=== PATIENT | male | born 1985 | race Caucasian/White ===

== ENCOUNTER → 2018-07-19 08:43 | Day surgery (SDC) | payer OTHER ==
--- NOTE | 2018-07-03 11:38 | HP ---
HISTORY AND PHYSICAL: ADDENDUM: CURRENT MEDICATIONS: 1. Voltaren 1%. 2. Ibuprofen 200 mg p.r.n. pain. 3. Nexium 24-hour tab 20 mg 1 by mouth every day. 4. Tretinoin 0.1% as needed for acne. 5. Ketoconazole 2% cream as needed for facial redness. ALLERGIES: DOXYCYCLINE, which has caused hives. YAMILETH SHIPLEY [id number]/[facility] #: [id number] MTDD
--- NOTE | 2018-07-03 12:28 | HP ---
PREOPERATIVE HISTORY AND PHYSICAL: DATE OF ADMISSION: 07/19/18 ATTENDING SURGEON: Dr. Hari Sheridan* (dictated by YAMILETH Mercado). CHIEF COMPLAINT: Right wrist pain. HISTORY OF PRESENT ILLNESS: Mr. Mitchell is a 33-year-old right-hand dominant male, who has been followed by Dr. Sheridan for right wrist pain related to a ganglion cyst. The patient's pain has not improved with injections, NSAIDs, bracing, or physical therapy. Therefore, surgical excision has been recommended and the patient would like to proceed with this procedure with Dr. Sheridan. PAST MEDICAL HISTORY: Gastroesophageal reflux disease and mild acne. PAST SURGICAL HISTORY: None. CURRENT MEDICATIONS: 1. Voltaren 1%. 2. Ibuprofen 200 mg p.r.n. pain. 3. Nexium 24-hour tab 20 mg 1 by mouth every day. 4. Tretinoin 0.1% as needed for acne. 5. Ketoconazole 2% cream as needed for facial redness. ALLERGIES: DOXYCYCLINE, which has caused hives. FAMILY HISTORY: No known history. 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 REVIEW OF SYSTEMS: No headache, lightheadedness, or balance problems. Cardio: He has rare palpitations with stress, his PCP described as benign. He denies harshal chest pain and no murmurs. Respiratory: No chronic cough, asthma, COPD, or shortness of breath with exertion. Gastrointestinal: Reports mild gastric reflux, controlled with medication but no nausea, vomiting, diarrhea or constipation. Genitourinary: No nighttime urination, increased urgency, frequency, urinary tract infections or kidney issues. Musculoskeletal: As per HPI. No chronic back pain or history of fracture. Skin: Mild acne but no rashes, lesions, lumps, or sores. Neurological: No seizure, stroke, epilepsy, depression, or anxiety. Endocrine: No thyroid or diabetic issues. Hematology: No easy bleeding, bruising, anemia, or clotting issues. PHYSICAL EXAMINATION GENERAL: He is a well-developed, well-nourished male, seated on exam chair, in no acute distress with appropriate affect. VITAL SIGNS: Height 71 inches, weight 170 pounds, pulse 76, blood pressure 118/ 68 with respirations of 12. HEENT: Normocephalic, atraumatic. Hearing and vision are grossly intact with extraocular movements intact. NECK: The trachea is midline and symmetrical. LUNGS: Clear to auscultation. No wheezes, rales, or rhonchi appreciated. HEART: Regular rate and rhythm with a normal S1, S2. No murmurs, rubs, or gallops. ABDOMEN: Soft and nontender with bowel sounds present. GENITOURINARY: Deferred. MUSCULOSKELETAL: The right wrist reveals no obvious edema or bruising. Passive range of motion is 60 degrees of extension and flexion compared to the contralateral left wrist flexion and extension of 80 degrees. The right wrist has pain at the terminal ends of range of motion with tenderness to palpation of the scapholunate ligament with a mild soft palpable mass. No radial snuffbox tenderness. Positive dorsal talus Myers test. He is neurovascularly intact. A 2+ radial pulse and brisk capillary refill. IMAGING: X-rays of the right wrist from 12/06/2017, 3 views, show no fracture, and no degenerative changes. MRI of the right wrist without contrast from December 17, 2017 shows a clear ganglion cyst approximately 5-mm in diameter present just dorsal to the scapholunate ligament. No clear scapholunate ligament tear visible. No clear dorsal extrinsic ligament tear. I showed the patient the MRI images that included this clear cyst present in the location of the patient's continued pain. IMPRESSION: Right wrist dorsal ganglion cyst. PLAN: Right wrist excision of dorsal ganglion cyst with Dr. Sheridan on . Dr. Sheridan discussed the possible risk and benefits of the procedure and answered the patient's questions. The patient would like to proceed. He will follow up postoperatively as discussed upon discharge. YAMILETH MERCADO [id number]/[facility] #: [id number]/[facility] #: [id number] PETER
[~2018-07-19 08:43] MED LIST: Acetaminophen TAB* 325 MG PO PRN; Buffered Lidocaine 1% SYRIN* 1 ML/SYRINGE INTRADERM ONE; Bupivacaine 0.5%* 50 ML VIAL ONE; HYDROmorphone INJ1* 1 MG/ML SYRINGE IV PRN; Ketorolac INJ* 30 MG/ML 1 ML VIAL ONE; Lactated Ringers 1000 ML Bag* 1,000 ML IV SCH; Lidocaine 1% INJ* 10 MG/ML 30 ML SDV ONE; Lidocaine 2% PF * 5 ML VIAL ONE; Midazolam* 1 MG/ML 2 ML VIAL (2 MG) ONE; Naloxone* 0.4 MG/ML 1 ML VIAL IV PRN; Ondansetron ODT TAB* 4 MG PO PRN; Propofol* 10 MG/ML 20 ML BTL ONE; Propofol* 500 MG/50 ML BTL ONE; Rocuronium* 10 MG/ML VIAL ONE; Sugammadex * 500 MG/5 ML VIAL IV PUSH ONE; ceFAZolin 2 GM in NS PREMIX(*) 2 GM/100 ML BAG IVPB ONE; fentaNYL* 50 MCG/ML 2 ML VIAL (100 MCG VIAL) ONE; oxyCODONE TAB* 5 MG TAB PO PRN
[2018-07-19 16:07] VITALS: BP 119/85
--- NOTE | 2018-07-21 00:46 | OP ---
OPERATIVE REPORT: DATE OF OPERATION: 07/19/18 DATE OF : 89 SURGEON: Dr. Hari Sheridan. SUSTAINABLE COMMUNITIES DESIGNER: YAMILETH Timmons. A physician assistant plant manager was required for the length of the procedure for assistance with patient positi oning, retraction, and closure. ANESTHESIOLOGIST: Dr. Corrine Saez. ANESTHESIA: The patient started out with monitored anesthesia care consisting of general sedation an d local anesthesia. For local anesthesia, I utilized 22 cc of 1:1 ratio of Marcaine 0.5% with epinep hrine and lidocaine 1%. We then transitioned to general anesthesia. PRE-OP DIAGNOSIS: Right wrist dorsal ganglion cyst. POST-OP DIAGNOSIS: Right wrist dorsal ganglion cyst. OPERATIVE PROCEDURE: Excision of right wrist dorsal ganglion cyst. ANTIBIOTICS: 2 g Ancef IV. IV FLUIDS: See Anesthesia note. TOURNIQUET TIME: Approximately 47 minutes at 250 mmHg right upper arm. SKIN TO SKIN TIME: 46 minutes. COMPLICATIONS: None. IMPLANTS: None. SPECIMEN: A ganglion sac sent to Pathology. ESTIMATED BLOOD LOSS: Minimal. 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 He had seen orthopedic surgeons including hand surgeons in [facility] for many years with periodic cortisone injections and wrist bracing. He had also been treated with physical therapy and NSAIDs. I attempted an aspira tion in the office, but that was unsuccessful. Discussed with the patient risks and potential complications of surgery including bleeding, infection , nerve or blood vessel injury, risk of recurrence of ganglion cyst, risk of persistent pain, wrist s tiffness, tendon and nerve injury among others. The patient opted to moved forward with surgery. DESCRIPTION OF PROCEDURE: In preoperative holding, the patient signed a written surgical consent. O perative extremity was marked in preoperative holding. The patient mentioned to the anesthesiologist that a grandparent of his had a history of malignant hyperthermia. Therefore, there was a strong pr eference if possible to avoid general anesthesia. The patient was brought back to the operating room on a stretcher. The patient received some light sedation. Mini time-out was performed. I next injected 10 cc of a 1:1 ratio of lidocaine 1% and Marcaine 0.5% with epinephrine into the dorsal and radial distal forearm proximal to the area of planned incision. I did this to obtain anesthesia of branches from the lateral antebrachial cutaneous nerve, superfici al radial nerve, and ulnar nerve. It should be stated that when the patient was still in preoperative holding, I was able to palpate hi s ganglion and I used a marking pen to delineate its borders. As well, a preoperative imaging was up in the room, showed a lesion that was 5 x 6 mm, although accor ding to touch in preoperative holding it appeared that the lesion had grown since the patient's last clinic visit and since the time of the MRI that was obtained. The patient's right upper extremity was next prepped and draped. Formal surgical time-out was perfor med. Esmarch was applied and tourniquet was elevated to 250 mmHg. I tested for anesthesia about the planned skin incision. The patient's wrist was moving. He clearly was responding to that. Therefore, I added some more local anesthesia into the area about the plann ed incision site. I next made a transverse skin incision overlying the bump that had been palpated p reoperatively, transverse incision chosen for its cosmesis. I dissected down through the superficial most subcutaneous tissue and then prior to reaching any longitudinal structure such as superficial v eins or nerves, I stopped using the knife, I used scissors with careful dissection and placed retract ors radial and ulnar. The patient was still moving. The anesthesia made him deeper. I identified the extensor tendons of the fourth compartment. I released a small amount of extensor r etinaculum that allowed mobilization of these tendons. I was between the third and fourth extensor t endon compartments. Ganglion was visualized. I started to dissect closely around the ganglion cyst. The patient moved as he was actually moving his nonoperative arm as well. Decision was made to con vert the patient to general anesthesia. We waited for general anesthesia to be induced. We waited for the general anesthesia to be particula rly deep so that there was no possibility of patient movement. Identified a ganglion cyst. Dissected down further. Identified a ganglion cyst lying directly over the dorsal aspect of the scaphoid. It popped as I was dissecting around it. I sharply excised with scissors the cyst sac or part of it and sent that to Pathology. Identified the scapholunate interval , the clear source of the sac based on preoperative imaging. I fulgurated a hole in the capsule over lying this ligament with bipolar cautery, making sure to respect the underlying scapholunate ligament was not affected. Irrigation. Considered closure of extensor retinaculum, but I had released so little of it that this was not required. Therefore, closure of the skin was the only layer required and this was performed with horizontal mattress stitches using nylon 4-0 suture. Xeroform, 4x4s, significant amount of sterile Webril creating a bulk dressing followed by Romeo. The patient was lightened of sedation, extubated and brought to the PACU. DISPOSITION: The patient was discharged home with wound care instructions. Tramadol as needed for pa in. The patient will follow up with me in the office 12 to 14 days. We will assess at that point hi s range of motion and determine whether physical therapy is required to reestablish full range of mot ion. [id number]/[facility] #: [id number]
== END | disposition home or self-care (01) ==
LOC: OR 08:43
PROVIDERS: ATTEND Orthopaedic Surgery
DX: M67.431 Ganglion, right wrist (principal); K21.9 Gastro-esophageal reflux disease without esophagitis; R00.2 Palpitations; I73.00 Raynaud's syndrome without gangrene
CPT/HCPCS: 88304; J0690; J1885; J2250; J2704; J3010; J3490